=== PATIENT | female | born 1990 | race Caucasian/White ===

== ENCOUNTER 2018-07-15 11:02 | Inpatient (IN) | payer OTHER ==
[2018-07-15] MEDS ORDERED: Ondansetron HCl/PF 4 MG/2 ML Vial IVP PRN ×3 (12:06→21:20)
[2018-07-15] MEDS ORDERED: HYDROcodone/Acetaminophen 5/325 mg Tablet PO PRN ×4 (12:06→21:20)
[2018-07-15] MEDS ORDERED: Ibuprofen 800 MG TAB PO PRN (12:06)
[2018-07-15] MEDS ORDERED: Promethazine HCl 25 MG/ML VIAL IM PRN ×2 (12:06→14:47)
[2018-07-15] MEDS ORDERED: Lidocaine 1% (PF) 30 ML VIAL SC PRN (12:06)
[2018-07-15] MEDS ORDERED: NS / Oxytocin 40 units/1000ml 1,000 ML IV PRN (12:06)
[2018-07-15] MEDS ORDERED: Penicillin G Potassium 5 MILL.UNITS in Sodium Chloride 0.9% 100 ML IVPB SCH (12:15)
[2018-07-15] MEDS ORDERED: Lactated Ringer's 1,000 ML IV SCH (12:15)
[2018-07-15] MEDS: Lactated Ringer's 1,000 ML IV SCH ×2 (12:33→14:46)
[2018-07-15 12:40] LABS: Hemoglobin 13.2 g/dL (12.0-16.0); Mean Corpuscular HGB CONC 33.4 g/dL (32.0-36.0); Mean Corpuscular Hemoglobin 31.1 pg (27.0-31.0); Mean Platelet Volume 8.6 fL (7.4-10.4); Platelet Count 238 thou/uL (130-400); RBC Distribution Width 12.6 % (11.5-14.5); Red Blood Cell (RBC) Count 4.25 mill/uL (4.20-5.40); White Blood Cell (WBC) Count 10.6 thou/uL (4.8-10.8)
[2018-07-15] MEDS ORDERED: Bupivacaine 0.5% 20 ML, fentaNYL Citrate/PF 400 MCG in Sodium Chloride 0.9% 72 ML EPIDURAL SCH (13:15)
[2018-07-15] MEDS ORDERED: DISCONTINUE ALL PREVIOUS NARCOTICS FS SCH (13:15)
[2018-07-15 13:19] LABS: HBSAg Index 0.21 S/CO (0-0.99); Hep B Surf Ag Non-Reactive S/CO (NonReactive)
[2018-07-15 13:20] LABS: Syphilis Antibody Nonreactive (Nonreactive); Syphilis Antibody Index 0.04 S/CO (<1.00 Non-Reactive)
[2018-07-15 13:33] LABS: Amphetamine Not Detected (NotDetected); Barbiturates Screen Not Detected (NotDetected); Benzodiazepine Screen Not Detected (NotDetected); Cocaine Metabolite Screen Not Detected (NotDetected); Medtox Control Line Valid? VALID (VALID); Medtox Reader # READER 4; Methadone Not Detected (NotDetected); Methamphetamine Not Detected (NotDetected); Opiate Screen Not Detected (NotDetected); Oxycodone Screen Not Detected (NotDetected); Phencyclidine (PCP) Not Detected (NotDetected); THC/Cannabinoid Screen Not Detected (NotDetected); Tricyclic Screen Not Detected (NotDetected)
[2018-07-15] MEDS ORDERED: Bupivacaine/Epinephrine 0.25% 30 ML VIAL ONE (14:44)
[2018-07-15] MEDS ORDERED: ePHEDrine/0.9% NaCl/PF SYRINGE 50 mg/10 ml SLOW IVP PRN (14:47)
[2018-07-15] MEDS ORDERED: Naloxone HCl 0.4 mg/ml Vial IVP PRN ×2 (14:47)
[2018-07-15] MEDS ORDERED: Eucerin (Mineral Oil/Petrolatum,White) 30 gm Jar TOP PRN (14:47)
[2018-07-15] MEDS ORDERED: Lactated Ringer's 500 ML IV PRN (14:47)
[2018-07-15] MEDS ORDERED: Acetaminophen 325 MG TAB PO PRN (14:47)
[2018-07-15] MEDS ORDERED: diphenhydrAMINE 50 MG/ML VIAL IVP PRN (14:47)
[2018-07-15] MEDS ORDERED: fentaNYL Citrate/PF 400 MCG, Bupivacaine 0.5% 20 ML in Sodium Chloride 0.9% 72 ML EPIDURAL SCH (15:00)
[2018-07-15] MEDS ORDERED: Communication Order-Pharmacy FS SCH (15:00)
[2018-07-15] MEDS: Penicillin G 2.5 MILL.units 2.5 MILL.UNITS in Premix Bag 1 BAG IVPB SCH ×2 (15:55→21:24)
--- NOTE | 2018-07-15 17:08 | PDOC.LDHP ---
Labor and Delivery H&P Chief complaint: contractions HPI: 28yo at 39w3d by LMP with painful contractions Current gestational age (weeks): 39 Due date: 07/19/18 Dating criteria: last menstrual period (2) Grav: 2 Para: 1 Current complications: none Abnormal US findings: No Past Medical History: denies Current medications: pre- vitamins Previous surgical history: none Allergies/Adverse Reactions: Allergies Allergy/AdvReac Type Severity Reaction Status Date / Time No Known Allergies Allergy Unverified 07/15/18 12:08 Social history: none - Physical Exam Vital signs reviewed and normal: yes General: NAD Heart: RRR Lungs: CTAB Abdomen: gravid Extremeties: no edema FHT: category 1 [place] contractions every: 5min - Vaginal Exam cm dilated: 10 Effacement: 100% Station: 2+ (arom clear) - OB Labs Blood type: O RH: positive Antibody Screen: negative HIV: negative RPR: negative HEPSAg: negative 1 hour GCT: negative GBS: positive Urine drug screen: positive Rubella: immune - Assessment L&D Assessment: term patient in labor - Plan Plan: admit to L&D, labor augmentation if indicated, GBS antibiotic prophylaxis , informed consent obtained, anesthesia consult for pain management -: UDS ordered
--- NOTE | 2018-07-15 17:11 | PDOC.OPDEL ---
OB Operative/Delivery Note Delivery Dr/Surgeon: Juancarlos Assist: n/a Pre-Delivery Diagnosis: active labor Procedure/Post Delivery Dx: spontaneous vaginal delivery Weeks gestation: 39 Anesthesia: epidural - Findings A Sex: female - 1 min: 8 - 5 min: 9 - Additional Findings/Plan Placenta delivered: spontaneous Repaired Obstetrical Laceration: none Estimated blood loss: 400 qbl pending Post delivery plan: routine recovery
[2018-07-15] MEDS ORDERED: Preparation H Ointment 28 GM TUBE PR PRN (21:20)
[2018-07-15] MEDS ORDERED: Milk Of Magnesia 30 ML UDCUP PO PRN (21:20)
[2018-07-15] MEDS ORDERED: Lanolin Ointment 7 GM TUBE TOP PRN (21:20)
[2018-07-15] MEDS ORDERED: Adacel (T-DAP) 0.5 ML VIAL IM ONE (21:20)
[2018-07-15] MEDS ORDERED: NS / Oxytocin 40 units/1000ml 1,000 ML IV SCH (21:20)
[2018-07-15] MEDS ORDERED: diphenhydrAMINE 25 MG CAP PO PRN (21:20)
[2018-07-15] MEDS ORDERED: Bisacodyl 10 MG SUPP PR PRN (21:20)
[2018-07-15] MEDS ORDERED: Benzocaine/Menthol 20-0.5% 60 ML CAN TOP PRN (21:20)
[2018-07-16] MEDS: Ibuprofen 800 MG TAB PO SCH ×4 (02:18→21:13)
--- NOTE | 2018-07-16 07:55 | PDOC.PP ---
Post Progress Note Post Day #: 1 PO intake tolerated: yes Flatus: yes Ambulation: yes Vital Signs (12 hours) Temp Pulse Resp BP Pulse Ox 07/16/18 04:45 97.4 F L 60 20 129/81 98 07/16/18 01:20 97.8 F 58 L 18 126/84 97 07/15/18 22:35 97.8 F 60 18 130/79 96 07/15/18 21:20 97.8 F 64 20 123/79 96 07/15/18 19:55 97.7 F 73 18 144/78 H 98 Weight Weight 6.949 oz - Physical Examination General: NAD Cardiovascular: RRR Respiratory: non-labored breathing Abdominal: no distention, appropriately TTP Fundus firm & at: umb Neurological: no gross focal deficits Psychiatric: normal affect Result Diagrams: 07/15/18 12:24 Additional Labs: Post Labs Blood Type O POSITIVE 07/15/18 12:24 Hep Bs Antigen Non-Reactive S/CO (NonReactive) 07/15/18 12:24 - Assessment/Plan PPD1 s/p TSVD VSSAF Doing well lochia appropriate Rh pos RImm UDS neg Cont PP care.
[2018-07-16] MEDS: Ferrous Sulfate 325 MG TAB PO SCH ×2 (09:03→17:15)
[2018-07-16] MEDS: Docusate Calcium (SURFAK) 240 MG CAP PO SCH ×2 (09:03→21:13)
[2018-07-16] MEDS: Prenatal Vitamin 1 TAB PO SCH (09:03)
[2018-07-17] MEDS: Ibuprofen 800 MG TAB PO SCH (05:22)
--- NOTE | 2018-07-17 06:09 | PDOC.PP ---
Post Progress Note Post Day #: 2 Subjective: Doing well, pain is well controlled...has no issues PO intake tolerated: yes Flatus: yes Ambulation: yes Vital Signs (12 hours) Temp Pulse Resp BP 07/16/18 20:10 97.6 F 69 20 127/68 Weight Weight 6.949 oz - Physical Examination General: NAD Cardiovascular: no m/r/g Respiratory: clear to auscultation bilaterally Abdominal: + bowel sounds, lochia, no distention, appropriately TTP Extremities: negative homans (B) Neurological: no gross focal deficits Psychiatric: A&Ox3, normal affect Result Diagrams: 07/15/18 12:24 Additional Labs: Post Labs Blood Type O POSITIVE 07/15/18 12:24 Hep Bs Antigen Non-Reactive S/CO (NonReactive) 07/15/18 12:24 (1) Vaginal delivery Code(s): O80 - ENCOUNTER FOR FULL-TERM UNCOMPLICATED DELIVERY Status: Acute - Assessment/Plan Plan: PPD2 doing well. [facility]. Has follow up with [facility]. Doing well.,
--- NOTE | 2018-07-17 06:10 | PDOC.EVN ---
Event Note - Event Note Event Note: DISCHARGE NOTE Patient s/p Term , with delivery on 07/15/18. HX GBS colonization. Baby well. Discharged home on 07/17/18.
--- NOTE | 2018-07-17 06:18 | PDOC.PP ---
Post Progress Note Post Day #: 2 Subjective: Ambulating and erendira po. She states her hip pain that was present before delivery is now resolved. no HAs, no vision changes. PO intake tolerated: yes Flatus: yes Ambulation: yes Vital Signs (12 hours) Temp Pulse Resp BP 07/16/18 20:10 97.6 F 69 20 127/68 Weight Weight 6.949 oz BPs reviewed: 120/80s - Physical Examination General: NAD Cardiovascular: no m/r/g Respiratory: clear to auscultation bilaterally Abdominal: + bowel sounds, lochia, no distention, appropriately TTP Extremities: negative homans (B) Deviation from normal: Prevena wound vac in use...dressing over incision Result Diagrams: 07/15/18 12:24 Additional Labs: Post Labs Blood Type O POSITIVE 07/15/18 12:24 Hep Bs Antigen Non-Reactive S/CO (NonReactive) 07/15/18 12:24 (1) Vaginal delivery Code(s): O80 - ENCOUNTER FOR FULL-TERM UNCOMPLICATED DELIVERY Status: Acute
[2018-07-17] MEDS: Ferrous Sulfate 325 MG TAB PO SCH (07:01)
[2018-07-17] MEDS: Docusate Calcium (SURFAK) 240 MG CAP PO SCH (08:58)
[2018-07-17] MEDS: Prenatal Vitamin 1 TAB PO SCH (08:58)
[2018-07-17 09:06] VITALS: BP 148/81; TEMP 97.5
== END 2018-07-17 11:55 | disposition home or self-care (01) | DRG 807 ==
LOC: L&D/OP 11:02 → L&D 13:15 → 3SW 20:05
PROVIDERS: ADMIT Student in an Organized Health Care Education/Training Program; ATTEND Student in an Organized Health Care Education/Training Program
PROC: 10E0XZZ Delivery of Products of Conception, External Approach (ICD-10-PCS; principal; 2018-07-15)
DX: O80 Encounter for full-term uncomplicated delivery (principal); Z37.0 Single live birth; Z3A.39 39 weeks gestation of pregnancy
CPT/HCPCS: 51702; 80306; 85027; 86780; 86850; 86900; 86901; 87340; 90471; 90686; 99282; G0008; J2001; J2540; J3010; J3490; J7050

== ENCOUNTER 2022-02-15 19:41 | Emergency (ER) | payer OTHER, SELFPAY ==
[2022-02-15] MEDS ORDERED: Lidocaine 1% (PF) 30 ML VIAL ONE (20:20)
[2022-02-15] MEDS ORDERED: Boostrix 0.5 ML (Tdap) VIAL ONE (20:20)
[2022-02-15] MEDS ORDERED: Ibuprofen 800 MG TAB ONE (20:39)
[2022-02-15] MEDS ORDERED: HYDROcodone/Acetaminophen 5/325 mg Tablet ONE (20:39)
== END 2022-02-15 21:59 | disposition home or self-care (01) ==
LOC: ERS 19:41
DX: S71.112A Laceration without foreign body, left thigh, initial encounter (principal); W54.0XXA Bitten by dog, initial encounter
CPT/HCPCS: 12001; 90471; 90715; J2001